=== PATIENT | female | born 1945 | race Caucasian/White ===

== ENCOUNTER → 2017-12-31 | Outpatient (CLI) | payer MEDICARE, OTHER ==
[~2017-12-31] MED LIST: ADULT LOW DOSE81 MG PO; ADVAIR 250-501 EACH INH; ADVAIR HFA 230M12 GM INH; ALIGN4 MG PO; ASPIR 8181 MG PO; ATENOLOL; ATENOLOL 50MG T50 M1 PO; CATAPRESS3 TRANSDERM; CELEXA20 MG PO; CENTRUM COMPLE1 EACH PO; CENTRUM SILVER1 EACH PO; CIPRO500 MG PO; CLONIDINE HCL0.2 M2 PO; COREG25 MG PO; DOXYCYCLINE 10100 MG PO; DYAZIDE 37.5-21 EACH; GLIPIZIDE 10 MG10 MG PO; GLIPIZIDE XL5 MG PO; GLUCOPHAGE500 MG PO; GLUCOTROL XL2.5 MG PO; GLUCOTROL5 MG; HYDROCODONE-AP1 EAC6 PO; KEFLEX500 MG PO; LISINOPRIL20 MG PO; LISINOPRIL40 MG PO; LOFIBRA160 MG PO; LOTREL 10-40 M1 EACH PO; MAXZIDE-25 MG1 EACH PO; MELOXICAM15 MG PO; METFORMIN 500500 MG PO; METFORMIN HCL500 MG; MYRBETRIQ25 MG PO; NORCO 5-325 TA1 EACH PO; OMEPRAZOLE40 MG PO; ONDANSETRON HCL4 M2 PO; PREDNISONE 10 M10 MG PO; PREDNISONE50 MG PO; PREMARIN0.625 MG PO; PROAIR HFA8.5 GM IH; PROBIOTIC1 EAC1 PO; SIMVASTATIN40 MG PO; SINGULAIR 10 MG10 M1 PO; SPIRIVA INH; TESSALON PERLE100 MG PO; VENTOLIN HFA 1818 GM; VENTOLIN HFA 1818 GM INH; VICODIN 5-5001 EACH PO; ZOCOR 20 MG TAB20 M1 PO
== END ==
LOC: M.RAD 12-26 13:00
DX: Z12.31 Encounter for screening mammogram for malignant neoplasm of breast (principal); J44.9 Chronic obstructive pulmonary disease, unspecified; I10 Essential (primary) hypertension; E11.9 Type 2 diabetes mellitus without complications; E78.00 Pure hypercholesterolemia, unspecified; Z87.891 Personal history of nicotine dependence

== ENCOUNTER → 2018-03-28 | Outpatient (CLI) | payer MEDICARE, OTHER | LOC: M.LAB 11:38 | DX: R19.7 Diarrhea, unspecified (principal) ==

== ENCOUNTER → 2018-04-28 | Outpatient (CLI) | payer MEDICARE, OTHER ==
[2018-04-28 14:05] LABS: CHOLESTEROL 133 mg/dL (<200); HDL CHOLESTEROL 35 mg/dL (>40); LDL CHOLESTEROL 18 mg/dL (<100); TC:HDL 3.8 Ratio (Not establshd); TRIGLYCERIDE 400 mg/dL (<150); VLDL 80 mg/dL (<40)
[2018-04-28 14:08] LABS: SERUM ASSESSMENT CLEAR
== END ==
LOC: M.LAB 13:30
PROVIDERS: Internal Medicine Cardiovascular Disease
DX: E78.2 Mixed hyperlipidemia (principal)

== ENCOUNTER 2019-01-12 16:14 | Emergency (ER) | payer MEDICARE, OTHER ==
[~2019-01-12] VITALS: Ht 170.2 cm; Wt 99.8 kg
[2019-01-12] MEDS ORDERED: HUMALOG100 UNIT/1 SUBQ (16:31)
[2019-01-12] MEDS ORDERED: KEFLEX500 M1 PO (16:59)
[2019-01-12 17:41] VITALS: BP 156/76
== END 2019-01-12 17:41 | disposition home or self-care (01) ==
LOC: M.ERS 16:14
DX: S81.811A Laceration without foreign body, right lower leg, initial encounter (principal); I10 Essential (primary) hypertension; E78.00 Pure hypercholesterolemia, unspecified; J44.9 Chronic obstructive pulmonary disease, unspecified; Z87.891 Personal history of nicotine dependence; Z88.8 Allergy status to other drugs, medicaments and biological substances; Z90.710 Acquired absence of both cervix and uterus; Z90.49 Acquired absence of other specified parts of digestive tract; Z79.4 Long term (current) use of insulin; W26.8XXA Contact with other sharp object(s), not elsewhere classified, initial encounter; Y93.89 Activity, other specified; Y92.89 Other specified places as the place of occurrence of the external cause; Y99.8 Other external cause status

== ENCOUNTER → 2019-04-08 | Outpatient (CLI) | payer MEDICARE, OTHER ==
[~2019-04-08] MED LIST changes: +HUMALOG100 UNIT/1 SUBQ; +KEFLEX500 M1 PO
== END ==
LOC: M.CT 12:07
DX: K46.9 Unspecified abdominal hernia without obstruction or gangrene (principal); R16.0 Hepatomegaly, not elsewhere classified; Z90.49 Acquired absence of other specified parts of digestive tract; Z90.710 Acquired absence of both cervix and uterus

== ENCOUNTER 2019-07-16 10:59 | Emergency (ER) | payer MEDICARE, OTHER ==
[~2019-07-16] VITALS: Ht 167.6 cm; Wt 90.7 kg
[2019-07-16] MEDS ORDERED: COZAAR 25 MG TA25 M1 PO (11:19)
[2019-07-16] MEDS ORDERED: IRON325 PO (11:19)
[2019-07-16] MEDS ORDERED: TRULICITY0.75 MG/0. INJECTION (11:19)
[2019-07-16] MEDS ORDERED: OMEPRAZOLE 20 M20 M1 PO (11:19)
[2019-07-16] MEDS ORDERED: OXYBUTYNIN 5 MG5 M2 PO (11:19)
[2019-07-16] MEDS ORDERED: NORCO 5-325 TA1 EAC1 PO (12:59)
[2019-07-16 13:37] VITALS: BP 135/77
== END 2019-07-16 13:38 | disposition home or self-care (01) ==
LOC: M.ERS 10:59
DX: M25.511 Pain in right shoulder (principal); M79.601 Pain in right arm; I10 Essential (primary) hypertension; E11.9 Type 2 diabetes mellitus without complications; E78.00 Pure hypercholesterolemia, unspecified; J44.9 Chronic obstructive pulmonary disease, unspecified; Z90.710 Acquired absence of both cervix and uterus; Z90.49 Acquired absence of other specified parts of digestive tract; Z87.891 Personal history of nicotine dependence; Z88.8 Allergy status to other drugs, medicaments and biological substances

== ENCOUNTER → 2019-08-07 | Outpatient (CLI) | payer MEDICARE, OTHER ==
[~2019-08-07] MED LIST changes: +COZAAR 25 MG TA25 M1 PO; +IRON325 PO; +NORCO 5-325 TA1 EAC1 PO; +OMEPRAZOLE 20 M20 M1 PO; +OXYBUTYNIN 5 MG5 M2 PO; +TRULICITY0.75 MG/0. INJECTION
== END ==
LOC: M.MRI 12:56
DX: S43.431A Superior glenoid labrum lesion of right shoulder, initial encounter (principal); M25.411 Effusion, right shoulder; X58.XXXA Exposure to other specified factors, initial encounter; Y93.89 Activity, other specified; Y92.89 Other specified places as the place of occurrence of the external cause; Y99.8 Other external cause status

== ENCOUNTER 2020-05-05 12:23 | Emergency (ER) | payer MEDICARE, OTHER ==
[~2020-05-05] VITALS: Ht 170.2 cm; Wt 93.0 kg
[2020-05-05] MEDS ORDERED: PROBIOTIC1 EAC7 PO (12:35)
[2020-05-05] MEDS ORDERED: SIMVASTATIN80 MG PO (12:35)
[2020-05-05] MEDS ORDERED: NOVOFINE 321 EACH SUBQ (12:36)
[2020-05-05] MEDS ORDERED: LANTUS SUBQ (12:36)
[2020-05-05] MEDS ORDERED: JARDIANCE10 MG PO (12:37)
[2020-05-05] MEDS ORDERED: TRELEGY ELLIPT1 EACH SUBQ (12:38)
[2020-05-05 12:48] LABS: ABSOLUTE BASOPHILS 0.1 thou/uL (0.0-0.2); ABSOLUTE EOSINOPHILS 0.2 thou/uL (0.0-0.7); ABSOLUTE MONOCYTES 0.2 thou/uL (0.0-1.2); ABSOLUTE NEUTROPHILS 3.2 thou/uL (1.6-8.1); BASOPHILS 1.4 %; EOSINOPHILS 3.9 %; HEMATOCRIT 36.7 % (37.0-47.0); HEMOGLOBIN 12.2 gm/dL (12.0-15.0); LYMPHOCYTES 21.7 %; MCH 32.3 pg (26.0-34.0); MCHC 33.3 g/dL (28.0-37.0); MCV 97.2 fL (80.0-100.0); MONOCYTES 4.6 %; MPV 8.3 fl. (7.2-11.1); NUCLEATED RBCS 0 /100WBC; PLATELET COUNT* 155 thou/uL (150-400); POLYS 68.4 %; RBC 3.78 mil/uL (4.20-5.00); WBC 4.6 thou/uL (4.0-11.0)
[2020-05-05 12:58] LABS: INR 1.1; PROTIME 12.1 Seconds (9.20-11.50)
[2020-05-05 13:04] LABS: CALCIUM 9.1 mg/dL (8.5-10.1); POTASSIUM 4.9 mmol/L (3.5-5.1)
[2020-05-05 13:07] LABS: ALBUMIN 3.8 g/dL (3.4-5.0); TOTAL BILIRUBIN 0.3 mg/dL (<0.1-1.0); TOTAL PROTEIN 7.4 g/dL (6.4-8.2)
[2020-05-05] MEDS ORDERED: CARAFATE 1 GM TA1 GM PO (14:33)
--- NOTE | 2020-05-05 14:49 | EKG ---
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 Quality: : 1945 Requested By: Olga Cummings Order Number: [id number] MD: Aayush Brand Measurements Intervals [place] Rate: 66 P: 50 NH: 229 QRS: -25 QRSD: 89 T: 119 QT: 426 QTc: 447 Interpretive Statements Sinus rhythm Prolonged NH interval Borderline left axis deviation Abnormal T, consider ischemia, lateral leads Compared to ECG 02/21/2016 08:40:16 First degree AV block now present T-wave abnormality now present Possible ischemia now present Electronically Signed On 05-05-2020 14:49:34 ER TECH by Aayush Brand [email or web address] <ELECTRONICALLY SIGNED> By: Aayush Brand MD, FACC 05/05/20 1449 1226 1226 Aayush Brand MD, [facility] /EPI
[2020-05-05 14:52] VITALS: BP 124/70
== END 2020-05-05 14:53 | disposition home or self-care (01) ==
LOC: M.ERS 12:23
PROVIDERS: Personal Emergency Response Attendant
DX: K21.9 Gastro-esophageal reflux disease without esophagitis (principal); Z20.828 Contact with and (suspected) exposure to other viral communicable diseases; I10 Essential (primary) hypertension; E11.9 Type 2 diabetes mellitus without complications; E78.00 Pure hypercholesterolemia, unspecified; J44.9 Chronic obstructive pulmonary disease, unspecified; Z87.891 Personal history of nicotine dependence; Z88.8 Allergy status to other drugs, medicaments and biological substances; Z90.710 Acquired absence of both cervix and uterus; Z90.49 Acquired absence of other specified parts of digestive tract; Z79.4 Long term (current) use of insulin

== ENCOUNTER → 2020-06-15 | Outpatient (CLI) | payer MEDICARE, OTHER ==
[~2020-06-15] MED LIST changes: +CARAFATE 1 GM TA1 GM PO; +JARDIANCE10 MG PO; +LANTUS SUBQ; +NOVOFINE 321 EACH SUBQ; +PROBIOTIC1 EAC7 PO; +SIMVASTATIN80 MG PO; +THERA M PLUS T1 EAC2 PO; +TRELEGY ELLIPT1 EACH SUBQ; +TRICOR145 MG PO
--- NOTE | 2020-06-15 17:38 | CARDNUC ---
[place] [address] CARDIAC NUCLEAR IMAGING REPORT Name: HUBERT RODRIGUEZ Room: [facility]#: [id number] Admission: 06/15/20 Attend Phys: Kimberley Allen RN Discharge: Date of : 43 Date of Service: 06/15/20 1738 Report #: [id number] THIS REPORT FOR: cc: Leonie Angela MD, Katrina MD List[place], Michael J. MD [facility] ~ APPROVED REPORT Study performed: 06/15/2020 14:25:35 Exam: Nuclear Stress Test Indication: Chest pain Patient Location: Out-Patient Stress Tech: Rajwinder Sher Stress Nurse: Lashay Messina RN Ht: 5 ft 6 in Wt: 205 lbs BSA: 2.02 m2 BMI: 33.08 Medical History Medical History: Carotid artery disease, CHF, CKD, Diabetic Noninsulin, HTN, Hyperlipidemia Medications: asa-81, carvedilol, losartan, simvastatin, tricor Allergies: indocin Cardiac Risk Factors: Age, HTN, Hyperlipidemia, Diabetes (non-insulin), Tobacco History (Former) Exercise History: Sedentary Meds Held (24 hrs): carvedilol Stress Test Details Stress Test: Pharmacologic stress testing performed using 0.4 mg of regadenoson per 5 mL given IV over 10 seconds. Reason for pharmacologic stress test: physical limitation. HR Resting HR: 61 bpm Max Heart Rate (APMHR): 145 bpm Max HR Achieved: 86 bpm Target HR (85% APMHR): 123 bpm % of APMHR: 59 Recovery HR: 83 bpm BP Resting BP: 149/60 mmHg Max BP: 137/51 [place] [address] CARDIAC NUCLEAR IMAGING REPORT Name: HUBERT RODRIGUEZ Room: [facility]#: [id number] Admission: 06/15/20 Attend Phys: Kimberley Allen RN Discharge: Date of : 43 Date of Service: 06/15/20 1738 Report #: [id number] ECG Resting ECG: Sinus Rhythm Stress ECG: Sinus Rhythm ST Change: None Arrhythmia: None Recovery ECG: Sinus Rhythm Recovery ST Change: None Recovery Arrhythmia: None Clinical The patient tolerated Lexiscan infusion without significant cardiac symptoms. Stress ECG Conclusion The baseline twelve-lead EKG shows sinus rhythm without significant ST segment or T wave abnormality. EKGs obtained during and post Lexiscan infusion show sinus rhythm with no significant ST segment or T wave changes when compared to baseline. There were no stress-induced arrhythmias. NM EXAM: Myocardial Perfusion REST/STRESS Imaging Protocol: Rest Tc-99m/Stress Tc-99m 1 day Resting Data Rest SPECT myocardial perfusion imaging was performed in supine position 30 minutes following the intravenous injection of 10.3 mCi of Tc-99m Sestamibi. Time of rest injection: 13:10 The images were gated to evaluate regional wall motion and calculate left ventricular ejection fraction. Administration Route: IV Administration Site: Right Arm Pharmacologic Stress Pharmacologic stress test was performed by injecting Regadenoson 0.4 mg IV push followed by the intravenous injection of 30.9 mCi of Tc-99m Sestamibi. Time of stress injection: 14:50 Administration Route: IV Administration Site: Right Arm Heart Rate at time of stress injection: 86 bpm. Gated Stress SPECT was performed 40 minutes after stress injection. The images were gated to evaluate regional wall motion and calculate left [place] [address] CARDIAC NUCLEAR IMAGING REPORT Name: HUBERT RODRIGUEZ Room: [facility]#: [id number] Admission: 06/15/20 Attend Phys: Kimberley Allen RN Discharge: Date of : 43 Date of Service: 06/15/20 1738 Report #: [id number] Prone imaging was performed. Study Quality Study: Good Artifact: No artifact Study Data At rest, the left ventricular ejection fraction was 78%.. Post stress, the left ventricular ejection was 71%.. TID = 1.05. Perfusion Perfusion images obtained at rest and post Lexiscan stress show uniform uptake of the radioisotope throughout the myocardium. There were no defects to suggest infarct or ischemia. Wall Motion Normal left ventricular wall motion. Nuclear Conclusion ECG Findings: negative for ischemia Clinical Findings: negative for ischemia Nuclear Findings: negative for ischemia Exercise Capacity: not assessed Left Ventricular Function: normal Risk Study: low Perfusion images show no defect to suggest infarct or ischemia. Left ventricular systolic function appears normal on gated studies. This is a low risk study. <Conclusion> The baseline twelve-lead EKG shows sinus rhythm without significant ST segment or T wave abnormality. EKGs obtained during and post Lexiscan infusion show sinus rhythm with no significant ST segment or T wave changes when compared to baseline. There were no stress-induced arrhythmias. <ELECTRONICALLY SIGNED> By: Aayush Brand MD, FACC 06/15/20 1738 1738 1738 Aayush Brand MD, FACC /INF
== END ==
LOC: M.NUC 05-19 13:41
PROVIDERS: ATTEND Registered Nurse
DX: R07.9 Chest pain, unspecified (principal)

== ENCOUNTER → 2020-12-05 | Outpatient (CLI) | payer MEDICARE, OTHER ==
[2020-12-05 10:41] LABS: CREATININE 1.8 mg/dL (0.6-1.3)
== END ==
LOC: M.LAB 10:15 → M.MRI 11:30
PROVIDERS: ATTEND Internal Medicine Gastroenterology
DX: J44.9 Chronic obstructive pulmonary disease, unspecified (principal); K74.60 Unspecified cirrhosis of liver; K76.6 Portal hypertension; K76.89 Other specified diseases of liver